=== PATIENT | male | born 1980 | race African-American/Black ===

== ENCOUNTER → 2017-04-27 | Outpatient (CLI) | payer OTHER ==
[2017-04-27 13:01] LABS: HEMOGLOBIN 14.8 g/dL (13.7-18.0)
[2017-04-27 13:39] LABS: FERRITIN 64.8 ng/mL (26-388)
== END | disposition home or self-care (01) ==
LOC: CFH 08:25
PROVIDERS: ATTEND Nurse Practitioner Primary Care
DX: Z00.01 Encounter for general adult medical examination with abnormal findings (principal); Z12.5 Encounter for screening for malignant neoplasm of prostate; Z12.11 Encounter for screening for malignant neoplasm of colon; Z13.220 Encounter for screening for lipoid disorders; D72.9 Disorder of white blood cells, unspecified; E55.9 Vitamin D deficiency, unspecified; D52.8 Other folate deficiency anemias; R79.89 Other specified abnormal findings of blood chemistry; R53.83 Other fatigue
CPT/HCPCS: 36415; 80061; 80076; 82306; 82607; 82728; 82746; 83540; 83550; 84443; 84466; 85025